=== PATIENT | male | born 1980 | race Caucasian/White ===

== ENCOUNTER 2018-05-03 14:35 | Inpatient (IN) ==
--- NOTE | 2018-05-03 15:21 | ED ---
HPI General Chief Complaint: Psychiatric Symptoms Stated Complaint: Psych Eval Time Seen by Provider: 05/03/18 15:04 Source: patient Mode of arrival: ambulatory Limitations: no limitations History of Present Illness HPI Narrative: Is a 38-year-old man, presents to the emergency department complaining of feeling unwell. He states that he has been having confusion, and difficulty maintaining his thoughts. He reports that he started meditating , started practicing astral projection, and states that he "took it too far". He reports that he is no longer able to focus in one dimension, and is having trouble other people salts from his. He endorses hallucinations. He states symptoms been ongoing for several weeks. He states he is drinking alcoholic occasionally, but not daily. He does report that he was using "kratom " but stopped about 2 weeks ago. From research, it appears that this is a plant chemical, unrestricted in the [place], used to treat opiate withdrawal symptoms , and also reported that both stimulant and sedative effects. Apparently is from [place], where it is illegal. Patient also reports some GI symptoms including nausea, and some abdominal pain. Related Data Home Medications Medication Instructions Recorded Confirmed atenolol 50 mg PO DAILY 05/03/18 05/03/18 Allergies Allergy/AdvReac Type Severity Reaction Status Date / Time Sulfa (Sulfonamide Allergy Unknown A CHILD Verified 10/30/17 14:58 Antibiotics) Review of Systems ROS: all other systems reviewed are negative [facility] Medical History Medical History ADHD (Acute) Anxiety (Acute) Hypertension (Acute) Pulmonary embolism (Acute) Social History Social History Substance History: Active Abuse Second Hand Smoke Exposure: Yes Smoking Status: Current some day smoker Tobacco Type: Cigarettes How Often Do You Have a Drink Containing Alcohol: 2 to 4 times a month Recent Travel in [place] within the Last 8 Weeks: No Recent Out of Country Travel within the Last 8 Weeks: No Immunization History Tetanus Immunization Year if Known: 2010 Exam Narrative Exam Narrative: GENERAL: 38-year-old man, anxious, nontoxic. SKIN: Focused skin assessment warm/dry. HEAD: Atraumatic. Normocephalic. EYES: Pupils equal and round. No scleral icterus. No injection or drainage. ENT: No nasal bleeding or discharge. Mucous membranes pink and moist. NECK: Trachea midline. No JVD. CARDIOVASCULAR: Regular rate and rhythm. No murmur appreciated. RESPIRATORY: No accessory muscle use. Clear to auscultation. Breath sounds equal bilaterally. GASTROINTESTINAL: Abdomen soft, non-tender, nondistended. Hepatic and splenic margins not palpable. MUSCULOSKELETAL: No obvious deformities. No clubbing. No cyanosis. No edema. NEUROLOGICAL: Awake and alert. No obvious cranial nerve deficits. Motor grossly within normal limits. Normal speech. PSYCHIATRIC: Appropriate mood and affect; insight and judgment fair. Endorsing hallucinations. Course Initial Documented Vital Signs Temperature 99.0 F 05/03/18 14:45 Pulse Rate 79 05/03/18 14:45 Respiratory Rate 16 05/03/18 14:45 Blood Pressure 211/121 H 05/03/18 14:45 Pulse Oximetry 99 05/03/18 14:45 Last Documented Vital Signs Temperature 99.0 F 05/03/18 14:45 Pulse Rate 72 05/03/18 15:59 Respiratory Rate 14 05/03/18 15:59 Blood Pressure 184/115 H 05/03/18 16:41 Pulse Oximetry 100 05/03/18 15:59 Medical Decision Making MDM Narrative Medical decision making narrative: 38-year-old man, having bizarre psychotic symptoms including hallucinations, hyperreligiosity, and delusional thoughts. Does not appear to be paranoid. Does not appear to be threatening. Possibly related to drug use. Psychiatric history seems to be limited to anxiety. He is very anxious now, will recommend Ativan. We will plan on basic labs, drug screen, psychiatric evaluation. Some of the symptoms are tied into his history of GI complaints. Is a benign exam, does not appear overtly dehydrated. We will also repeat blood pressure. Lab work reviewed, renal function is slightly decreased compared to baseline, he is tolerating oral hydration and this will be encouraged. He has blood pressure was initially elevated and is slowly trending down, he has been given clonidine. He is medically cleared for psychiatric disposition. Medical Screen Exam Complete: Yes Emergency Medical Condition: Yes Lab Data Result diagrams: 05/03/18 15:23 05/03/18 15:23 Lab Results 05/03/18 05/03/18 Range/Units 15:23 15:23 WBC 6.1 (4.0-11.0) th/mm3 RBC 4.49 L (4.50-5.90) mil/mm3 Hgb 15.1 (13.0-17.0) gm/dL Hct 42.4 (39.0-51.0) % MCV 94.4 (80.0-100.0) fL MCH 33.7 (27.0-34.0) pg MCHC 35.7 (32.0-36.0) % RDW 13.0 (11.6-17.2) % Plt Count 380 (150-450) th/mm3 MPV 6.7 L (7.0-11.0) fL Neut % (Auto) 60.2 (16.0-70.0) % Lymph % (Auto) 26.4 (9.0-44.0) % [place] % (Auto) 11.5 H (0.0-8.0) % Eos % (Auto) 1.0 (0.0-4.0) % Baso % (Auto) 0.9 (0.0-2.0) % Neut # (Auto) 3.7 (1.8-7.7) th/mm3 Lymph # (Auto) 1.6 (1.0-4.8) th/mm3 [place] # (Auto) 0.7 (0.0-0.9) th/mm3 Eos # (Auto) 0.1 (0.0-0.4) th/mm3 Baso # (Auto) 0.1 (0.0-0.2) th/mm3 WBC Differential . Differential Comment Auto diff final Sodium 141 (136-145) meq/L Potassium 4.3 (3.5-5.1) meq/L Chloride 107 (98-107) meq/L Carbon Dioxide 27.7 (21.0-32.0) meq/L Anion Gap 6 (5-15) meq/L BUN 27 H (7-18) mg/dL Creatinine 1.34 H (0.60-1.30) mg/dL Estimated GFR 60 L (>89) mL/min Random Glucose 107 H (74-106) mg/dL Calcium 9.0 (8.5-10.1) mg/dL Magnesium 1.8 (1.5-2.5) mg/dL Total Bilirubin 0.6 (0.2-1.0) mg/dL AST 32 (15-37) U/L ALT 49 (12-78) U/L Alkaline Phosphatase 106 (45-117) U/L Total Protein 8.2 (6.4-8.2) g/dL Albumin 4.1 (3.4-5.0) g/dL TSH 0.564 (0.358-3.740) uIU/mL Serum Alcohol Less than 3 (0-5) mg/dL Discharge Plan Discharge Disposition Patient Disposition: Sign Out(ED Internal Use Only) Discharge Condition Condition: Stable Discharge Details Diagnosis: Encounter for medical clearance for patient hold Physicians Team ED Provider: Elieser Hinton ED Midlevel Provider: Michael Steven Primary Care Provider: Sarath Plummer Rxs /Orders / Referrals /Forms Prescriptions: No Action atenolol 50 mg Tablet 50 mg PO DAILY RF: 0 Discharge Interventions Interventions: Vital Signs Last Done: 05/03/18 16:41 Status ED Status: Medically Cleared
[2018-05-03 15:34] LABS: Baso # (Auto) 0.1 th/mm3 (0.0-0.2); Baso % (Auto) 0.9 % (0.0-2.0); Eos # (Auto) 0.1 th/mm3 (0.0-0.4); Hematocrit 42.4 % (39.0-51.0); Hemoglobin 15.1 gm/dL (13.0-17.0); Lymph # (Auto) 1.6 th/mm3 (1.0-4.8); Lymph % (Auto) 26.4 % (9.0-44.0); Mean Corpuscular HGB Conc 35.7 % (32.0-36.0); Mean Corpuscular Hemoglobin 33.7 pg (27.0-34.0); Mean Corpuscular Volume 94.4 fL (80.0-100.0); Mean Platelet Volume 6.7 fL (7.0-11.0); Mono # (Auto) 0.7 th/mm3 (0.0-0.9); Mono % (Auto) 11.5 % (0.0-8.0); Neut # (Auto) 3.7 th/mm3 (1.8-7.7); Neut % (Auto) 60.2 % (16.0-70.0); Platelet Count 380 th/mm3 (150-450); Red Blood Count 4.49 mil/mm3 (4.50-5.90); White Blood Count 6.1 th/mm3 (4.0-11.0)
[2018-05-03 16:06] LABS: Alkaline Phosphatase 106 U/L (45-117); Thyroid Stimulating Hormone 0.564 uIU/mL (0.358-3.740); Total Protein 8.2 g/dL (6.4-8.2)
[2018-05-03 16:21] LABS: Alanine Aminotransferase 49 U/L (12-78); Albumin 4.1 g/dL (3.4-5.0); Anion Gap 6 meq/L (5-15); Aspartate Aminotransferase 32 U/L (15-37); Blood Urea Nitrogen 27 mg/dL (7-18); Carbon Dioxide 27.7 meq/L (21.0-32.0); Chloride 107 meq/L (98-107); Glomerular Filtration Rate 60 mL/min (>89); Glucose,Random 107 mg/dL (74-106); Magnesium 1.8 mg/dL (1.5-2.5); Sodium 141 meq/L (136-145)
[2018-05-03 16:31] LABS: Potassium 4.3 meq/L (3.5-5.1)
[2018-05-03 17:16] LABS: Amphetamine Screen,Urine Neg (Neg); Barbiturate Screen,Urine Neg (Neg); Cannabinoid Screen,Urine Pos (Neg); Cocaine Screen,Urine Neg (Neg)
[2018-05-03 17:17] LABS: Opiate Screen,Urine Neg (Neg)
[2018-05-04] MEDS ORDERED: Aluminum/Magnesium/Simethacone Susp 30 ML UDC PO PRN (10:15)
[2018-05-04] MEDS ORDERED: Atenolol 50 MG Tablet PO ONE (10:28)
--- NOTE | 2018-05-04 10:42 | P.HPPSY ---
Provisional Diagnosis Admission Date: May 03, 2018 14:35 [place].: Psychosis not otherwise specified Competence Certification of Person's Competence To Provide Express and Informed Consent I have personally examined Shaun Leal, a person being served at [facility] on, May 04, 2018 1022. Express and informed consent means consent voluntarily given in writing, by a competent person, after sufficient explanation and disclosure of the subject matter involved to enable the person to make a knowing and willful decision without any element of force, fraud, deceit, duress, or other form of constraint or coercion. This person is 18 years of age or older, is not now known to be incompetent to consent to treatment with a guardian advocate, and does not have a health care surrogate or proxy currently making medical treatment decisions. I have found this person to be one of the following: [XX] Competent to provide express and informed consent, as defined above, for voluntary admission to this facility and is competent to provide express and informed consent for treatment. He/she has the consistent capacity to make well reasoned, willful, and knowing decisions concerning his or her medical or mental health treatment. The person fully and consistently understands the purpose of the admission for examination/placement and is fully capable of personally exercising all rights assured [place] Incompetent to provide express and informed consent to voluntary admission, and this is incompetent to provide express and informed consent to treatment. The person must be transferred to involuntary status and a petition for a guardian advocate filed with the Circuit Court. [] Refusing to provide express and informed consent to voluntary admission but is competent to provide express and informed consent for treatment. The person must be discharged or transferred to involuntary status. Form shall be completed within 24 hours of a person's arrival at the receiving facility and filed in the clinical record of each person: 1. Admitted on a voluntary basis 2. Permitted to provide express and informed consent to his/her own treatment 3. Allowed to transfer from involuntary to voluntary status 4. Prior to permitting a person to consent to his or her own treatment after having been previously found incompetent to consent to treatment. History of Present Illness Capacity: Has capacity Chief Complaint: "I have been experiencing crippling anxiety, all over body pain , seeing things, and hearing voices in my head." History of Present Illness: This is a 38-year-old single, male who presents to this facility voluntarily reporting bizarre beliefs as well as visual and auditory hallucinations. He is previously known to this facility although not this department. Reviewed electronic medical record, labs, and discussed case with staff. Patient's toxicology is noted to be positive for cannabinoids. Patient was found in J103 sleeping under no apparent distress. He awakens to verbal stimulation. His speech is clear, logical, organized, rapid and pressured. He endorses suicidal ideation in a vague manner stating "I think about it all the time" but denies any previous attempts. But then goes on a tangent about "what comes next". He then states, "I know it is after this I seen it". He denies homicidal ideation. He endorses auditory hallucinations stating that the voices in his head keep telling "me to get better". He reports that he is experiencing visual hallucinations and when asked to elaborate he states, "I see energy all around me that forms itself and shapes I can talk to". The patient also states that he has been meditating and performing astral projection and due to this he is no longer able to "focus on one dimension". Throughout the conversation he goes off on multiple tangents along this line. He is easily distractible but overall is cooperative. Patient states that he lives with his mother. He is currently unemployed for the past 6 months. 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 He denies any previous inpatient admissions. He states that he did go to a psychiatrist once and was diagnosed with ADHD however he did not take the medication for long as he felt it was counterproductive. There was approximately 2 months ago. He reports that he is completed 3 years of college. He denies any firearms in the home. He denies any familial psychiatric diagnoses. He states that he was arrested once and spent time in [facility] for reckless driving/DUI. He does report chronic pain to his left leg and right hand due to surgeries but states he now has chronic pain "all over". He reports that he smokes a couple cigarettes a day, drinks occasionally, and denies any other drug use then marijuana approximately every other day. He does state his have difficulty sleeping of late reporting that he is gone as long as 3 days without sleeping. He then stated he will sleep for approximately an hour and be up again. He reports that his appetite has been greatly decreased and states that he has had intermittent cyclic vomiting. He denies any connection to the marijuana. Review of Systems All other systems reviewed negative except as stated in HPI PMFSH - History History Provided By: Patient - Medical History Medical History: Medical History (Last Reviewed 05/04/18 @ 10:33 by ELÍAS Chung) ADHD Anxiety Hypertension Pulmonary embolism - Tobacco History Second Hand Smoke Exposure: Yes Tobacco Use In Past 30 Days: Yes Smoking Status: Current some day smoker Tobacco Type: Cigarettes - Alcohol History How Often Do You Have a Drink Containing Alcohol: 2 to 4 times a month - Substance Use History Substance History: Active Abuse - Substance Use Type Marijuana Status: Active Other Status: Active - Travel History Recent Travel in the [place] Within the Last 8 Weeks: No Recent Travel Out of the Country Within the Last 8 Weeks: No - Immunization History Tetanus Immunization: Unsure Tetanus Immunization Year if Known: 2010 Quality Measures - Psychiatric History Psychological trauma history: Denies Violence risk to others in the last 6 months: Denies Violence risk to self in the last 6 months: Denies - Substance Abuse History Drug or alcohol use in the past 12 months: Marijuana and Kratom - Patient Strengths Patient's strengths (minimum of 2): Patient seems to have a good support system in his mother and he does seem to have some self awareness that his beliefs may not be real. Medications and Allergies Allergies Allergy/AdvReac Type Severity Reaction Status Date / Time Sulfa (Sulfonamide Allergy Unknown A CHILD Verified 05/03/18 17:28 Antibiotics) Home Medications Medication Instructions Recorded Confirmed Type atenolol 50 mg PO DAILY 05/03/18 05/03/18 History Results - Labs CBC & Chem 7: 05/03/18 15:23 05/03/18 15:23 Labs: Laboratory Results - last 24 hr 05/03/18 05/03/18 05/03/18 15:23 15:23 16:10 WBC 6.1 RBC 4.49 L Hgb 15.1 Hct 42.4 MCV 94.4 MCH 33.7 MCHC 35.7 RDW 13.0 Plt Count 380 MPV 6.7 L Neut % (Auto) 60.2 Lymph % (Auto) 26.4 [place] % (Auto) 11.5 H Eos % (Auto) 1.0 Baso % (Auto) 0.9 Neut # (Auto) 3.7 Lymph # (Auto) 1.6 [place] # (Auto) 0.7 Eos # (Auto) 0.1 Baso # (Auto) 0.1 WBC Differential . Differential Comment Auto diff final Sodium 141 Potassium 4.3 Chloride 107 Carbon Dioxide 27.7 Anion Gap 6 BUN 27 H Creatinine 1.34 H Estimated GFR 60 L Random Glucose 107 H Calcium 9.0 Magnesium 1.8 Total Bilirubin 0.6 AST 32 ALT 49 Alkaline Phosphatase 106 Total Protein 8.2 Albumin 4.1 TSH 0.564 Urine Opiates Screen Neg Ur Barbiturates Screen Neg Ur Amphetamines Screen Neg U Benzodiazepines Scrn Neg Urine Cocaine Screen Neg U Cannabinoids Screen Pos H Serum Alcohol Less than 3 Exam Vital signs: Vital Signs 05/03/18 14:45 05/03/18 15:59 05/03/18 16:00 Temperature 99.0 F Pulse Rate 79 72 Respiratory Rate 16 14 Blood Pressure 211/121 H 190/107 H 191/120 H Pulse Oximetry 99 100 05/03/18 16:41 05/03/18 18:48 05/03/18 22:11 Temperature 97.5 F L Pulse Rate 84 82 Respiratory Rate 16 16 Blood Pressure 184/115 H 178/112 H Pulse Oximetry 100 100 05/04/18 05:34 Temperature 97.6 F Pulse Rate 78 Respiratory Rate 20 Blood Pressure 149/103 H Pulse Oximetry 100 Intake & Output 05/03/18 05/04/18 05/04/18 18:59 06:59 18:59 Weight 175 lb - Constitutional no acute distress, average body habitus - Routine HEENT Exam Head: Present: normocephalic, atraumatic - Routine Neurological Exam Present: alert, oriented X3 - Routine Psychiatric Exam Present: auditory hallucinations, visual hallucinations, cooperative, anxious Mental Status Examination Appearance: Appropriate, Well dressed/well groomed Consciousness: Alert Orientation: x4 Motor Activity: Normal gait Speech: Pressured, Rapid Language: Perseveration (On astral planes and other dimensions) Fund of Knowledge: Adequate Attention and Concentration: Easily distracted Memory: Unremarkable Mood: Anxious Affect: Anxious Thought Process & Associations: Tangential Thought Content: Bizarre thinking, Hallucinations, Preoccupations Hallucination Type: Auditory, Visual Delusion Type: Bizarre Suicidal Ideation: Yes (States that he thinks about it all the time) Suicidal Plan: No Suicidal Intention: No Homicidal Ideation: No Homicidal Plan: No Homicidal Intention: No Insight: Poor Judgment: Impulsive Assessment and Plan - Assessment (1) Unspecified psychosis Code(s): F29 - Unspecified psychosis not due to a substance or known physiological condition Status: Acute - Plan Plan: Estimated LOS: [7] days given that the patient endorses suicidal ideation as well as auditory and visual hallucinations which are affecting his quality of life he meets inpatient admission criteria. Therefore, I am admitting him to a locked inpatient psychiatric unit for further evaluation and treatment deemed necessary. He is exhibiting psychotic symptoms however there is some evidence of maciel as well. At this time we obtained his consent to initiate 50 mg of Seroquel at bedtime to target his psychosis however, he may require a mood stabilizer at some point. Additionally, he has signed for 50 mg of hydroxyzine by mouth every 6 hours as needed for anxiety and 50 mg of diphenhydramine by mouth at bedtime as needed for insomnia. Justification for Continued Inpatient Stay: Moving this patient to a less restrictive environment would likely result in decompensation. Request Healthcare Surrogate/Guardian Advocate?: No
[2018-05-04] MEDS: Ibuprofen 600 MG Tablet PO PRN (21:13)
[2018-05-04] MEDS: QUEtiapine 25 MG Tablet PO SCH (21:14)
[2018-05-05] MEDS: Ibuprofen 600 MG Tablet PO PRN ×2 (05:33→11:35)
[2018-05-05 09:47] LABS: Calcium 8.5 mg/dL (8.5-10.1); Carbon Dioxide 28.2 meq/L (21.0-32.0); Potassium 4.1 meq/L (3.5-5.1)
[2018-05-05 09:51] LABS: Chol/HDL Ratio 3.44 Ratio; HDL Cholesterol 55.5 mg/dL (40.0-60.0)
[2018-05-05 11:06] LABS: Hemoglobin A1c 5.1 % (4.3-6.0)
--- NOTE | 2018-05-05 12:41 | P.HPFP ---
Addendum entered and electronically signed by Alexa Crews MD, R1 16:13: D/C clonidine for breakthrough HTN due to patient being on BB and concern for adverse reaction with unopposed alpha. Patient still hypertensive despite 50 mg atenolol. Will increase dose to 100 mg daily. Consider adding HCTZ if blood pressures remain elevated. Concern with kidney function since patient is on ketorolac for pain control so will hold off GULSHAN inhibitors at this time. Original Note: History of Present Illness Primary Care Physician: Sarath Plummer MD <Dontae Wise - 05/06/18 19:08> Sarath Plummer MD <Alexa Barrera - 05/05/18 12:41> History of Present Illness: CONSULT NOTE 38-year-old male with past medical history of migraines, and hypertension on atenolol 50 mg daily admitted to the psychiatric unit for hallucinations/ depression/anxiety. Medicine team consulted to manage patient's hypertension and chronic pain. Patient states that he is currently anxious and has been anxious since admission, he continues to worry about his high blood pressures. He also complains of migraines that occur once a month. Affirms photophobia, migraine located in the frontal region of his head. He has tried ibuprofen with minimal relief. He also confirms some nausea but denies any vomiting. Also confirms diarrhea, last bowel movement was 3 days ago. He confirms visual hallucinations for the past 6 months with associated nausea, vomiting and weakness. He confirms low energy, not getting out of bed. He denies being actively suicidal but states he is curious about suicide and thinks about the process often. He denies any homicidal intent. Past medical history: Hypertension Past surgical history: Left knee surgery. Allergies: Sulfa drugs (unsure of reaction). Medications: Atenolol 50 mg daily Family history: Unsure of family past medical history. Social history: Smokes 2 cigarettes a day, occasional alcohol use, consumes alcohol socially. Addicted to opioids in the past and has withdrawn from them previously. Confirms marijuana use and kratom use. Confirms using shrooms few months ago. Lives at home with mother. Review of systems: Panpositive. He complains of night sweats, chest pain, shortness of breath, abdominal pain, anxiety. <Alexa Barrera 05/05/18 15:42> - Diagnosis (1) Hypertension (2) Migraines (3) Chronic pain (4) Anxiety (5) Nutrition, metabolism, and development symptoms <FrandyDontae 05/06/18 19:08> (1) Hypertension (2) Migraines (3) Chronic pain (4) Anxiety (5) Nutrition, metabolism, and development symptoms <Daniellekoko EleonoraAlexa 05/05/18 15:43> Inpatient Certification: I certify that the inpatient services were ordered in accordance with Medicare regulations governing the order. This includes certification that hospital inpatient services are reasonable and necessary and in the case of services not specified as inpatient-only under 42 CFR 419.22(n), that they are appropriately provided as inpatient services in accordance to with the 2-midnight benchmark under 43 CFR 412.3(e) <FrandyDontae Teetee 05/06/18 19:08> I certify that the inpatient services were ordered in accordance with Medicare regulations governing the order. This includes certification that hospital inpatient services are reasonable and necessary and in the case of services not specified as inpatient-only under 42 CFR 419.22(n), that they are appropriately provided as inpatient services in accordance to with the 2-midnight benchmark under 43 CFR 412.3(e) <Maria Isabelgrant EleonoraAlexa 05/05/18 12:41> Estimated Total Length of Stay (Days): 7 <Maria Isabelgrant EleonoraAlexa 05/05/18 12:41> Plans for Post Hospital Care: Home <Maria Isabelgrant CrewsAlexa 05/05/18 12:41> PMFSH - History History Provided By: Patient <Maria Isabelgrant CrewsAlexa 05/05/18 12:41> - Medical History Medical History: Medical History (Last Reviewed 05/04/18 @ 10:33 by ELÍAS Chung) ADHD Anxiety Hypertension Pulmonary embolism <FrandyDontae Teetee Franklin 05/06/18 19:08> Medical History (Last Reviewed 05/04/18 @ 10:33 by ELÍAS Chung) ADHD Anxiety Hypertension Pulmonary embolism <Mariusz CrewsAlexa 05/05/18 12:41> - Tobacco History Second Hand Smoke Exposure: Yes <Alexa Barrera 05/05/18 12:41> Tobacco Use In Past 30 Days: Yes <Alexa Barrera 05/05/18 12:41> Smoking Status: Current every day smoker <Alexa Barrera 05/05/18 12:41> Tobacco Type: Cigarettes <Alexa Barrera 05/05/18 12:41> - Alcohol History How Often Do You Have a Drink Containing Alcohol: 2 to 4 times a month <Alexa Barrera 05/05/18 12:41> - Substance Use History Substance History: Past History <Alexa Barrera 05/05/18 12:41> - Substance Use Type Marijuana Status: Active <Alexa Barrera 05/05/18 12:41> Route Used: Inhalation <Alexa Barrera 05/05/18 12:41> Reason for Use: Calm Down <Mariusz CrewsAlexa 05/05/18 12:41> Other Status: Active <Alexa Barrera 05/05/18 12:41> Route Used: By Mouth <Alexa Barrera 05/05/18 12:41> Reason for Use: Calm Down <Alexa Barrera 05/05/18 12:41> - Travel History Recent Travel in the [place] Within the Last 8 Weeks: No <Alexa Barrera 04/11 12:41> Recent Travel Out of the Country Within the Last 8 Weeks: No <Mariusz Crews Alexa 05/05/18 12:41> - Immunization History Tetanus Immunization: <5 Years <Mariusz CrewsAlexa 05/05/18 12:41> Tetanus Immunization Year if Known: 2010 <Alexa Barrera 05/05/18 12:41> Hx Influenza Vaccine This Season: No <Mariusz CrewsAlexa 05/05/18 12:41> Medications and Allergies Allergies Allergy/AdvReac Type Severity Reaction Status Date / Time Sulfa (Sulfonamide Allergy Unknown A CHILD Verified 05/03/18 17:28 Antibiotics) <Dontae Wise - 05/06/18 19:08> Home Medications Medication Instructions Recorded Confirmed Type atenolol 50 mg PO DAILY 05/03/18 05/03/18 History <Dontae Wise L - 05/06/18 19:08> Active Medications: Active Medications Al Hydrox/Mg Hydrox/Simethicone (Mag-Al Plus Susp Liq) 30 ml PO Q6H PRN PRN Reason: DYSPEPSIA Al Hydroxide/Mg Hydroxide (Milk Of Magnesia Liq) 30 ml PO Q12H PRN PRN Reason: Mild Constipation Atenolol (Tenormin) 50 mg PO DAILY [facility] Last Admin: 05/06/18 12:35 Dose: 50 mg Buspirone HCl (Buspar) 10 mg PO TID [facility] Last Admin: 05/06/18 17:20 Dose: 10 mg Diphenhydramine HCl (Benadryl) 50 mg PO HS PRN PRN Reason: INSOMNIA Last Admin: 05/06/18 12:37 Dose: 50 mg Gabapentin (Neurontin) 300 mg PO TID [facility] Last Admin: 05/06/18 17:12 Dose: 300 mg Hydrochlorothiazide (Hydrodiuril) 25 mg PO DAILY [facility] Last Admin: 05/06/18 11:00 Dose: 25 mg Hydroxyzine HCl (Atarax) 50 mg PO Q6H PRN PRN Reason: ANXIETY Last Admin: 05/06/18 12:35 Dose: 50 mg Ibuprofen (Motrin) 400 mg PO Q6H PRN PRN Reason: PAIN SCALE 1 TO 2 Naloxone HCl (Narcan Inj) 0.4 mg IV.PUSH UNSCH PRN PRN Reason: SEE LABEL COMMENTS Nicotine (Habitrol 21 Mg Patch.24 Hr) 1 patch T-DERMAL DAILY [facility] Last Admin: 05/06/18 09:13 Dose: 1 patch Patch Removal (Remove Old Patch) 1 each T-DERMAL HS [facility] Last Admin: 05/05/18 21:57 Dose: Not Given Quetiapine Fumarate (Seroquel) 50 mg PO HS [facility] Last Admin: 05/05/18 21:41 Dose: 50 mg Sumatriptan Succinate (Imitrex Inj) 6 mg SQ ONCE PRN PRN Reason: MIGRAINE HEADACHE Last Admin: 05/06/18 18:47 Dose: 6 mg Tramadol HCl (Ultram) 50 mg PO Q6H PRN PRN Reason: PAIN SCALE 3 TO 5 Tramadol HCl (Ultram) 100 mg PO Q6H PRN PRN Reason: PAIN SCALE 6 TO 10 Last Admin: 05/06/18 17:14 Dose: 100 mg Trazodone HCl (Desyrel) 50 mg PO HS PRN PRN Reason: SLEEP <Dontae Wise - 05/06/18 19:08> Active Medications Al Hydrox/Mg Hydrox/Simethicone (Mag-Al Plus Susp Liq) 30 ml PO Q6H PRN PRN Reason: DYSPEPSIA Al Hydroxide/Mg Hydroxide (Milk Of Magnesia Liq) 30 ml PO Q12H PRN PRN Reason: Mild Constipation Diphenhydramine HCl (Benadryl) 50 mg PO HS PRN PRN Reason: INSOMNIA Last Admin: 05/04/18 21:14 Dose: 50 mg Hydroxyzine HCl (Atarax) 50 mg PO Q6H PRN PRN Reason: ANXIETY Last Admin: 05/05/18 05:33 Dose: 50 mg Ibuprofen (Motrin) 600 mg PO Q6H PRN PRN Reason: PAIN SCALE 1 TO 10 Last Admin: 05/05/18 05:33 Dose: 600 mg Nicotine (Habitrol 21 Mg Patch.24 Hr) 1 patch T-DERMAL DAILY [facility] Last Admin: 05/05/18 09:48 Dose: 1 patch Patch Removal (Remove Old Patch) 1 each T-DERMAL HS [facility] Last Admin: 05/04/18 21:14 Dose: Not Given Quetiapine Fumarate (Seroquel) 50 mg PO HS [facility] Last Admin: 05/04/18 21:14 Dose: 50 mg <Alexa Barrera - 05/05/18 12:41> Exam Vital signs: Vital Signs 05/05/18 22:29 05/05/18 23:06 05/06/18 00:08 Temperature Pulse Rate 80 62 Respiratory Rate 16 Blood Pressure 167/115 H 131/81 Pulse Oximetry 05/06/18 05:57 05/06/18 17:39 Temperature 97.8 F 98.7 F Pulse Rate 69 72 Respiratory Rate 18 18 Blood Pressure 126/85 165/99 H Pulse Oximetry 100 99 <Dontae Wise - 05/06/18 19:08> Vital Signs 05/04/18 14:13 05/04/18 17:00 05/05/18 06:05 Temperature 98.7 F 97.4 F L Pulse Rate 76 83 66 Respiratory Rate 20 18 Blood Pressure 144/91 H 135/78 157/104 H Pulse Oximetry 100 98 Intake & Output 05/04/18 05/05/18 05/05/18 18:59 06:59 18:59 Weight 79.8 kg Other: Weight On Admission 79.8 kg <Maria Isabelgrant Alexa Crews - 05/05/18 12:41> Narrative: GENERAL: Middle age appearing male, sitting in bed, in no acute distress. SKIN: Warm and dry. HEAD: Normocephalic. EYES: No scleral icterus. No injection or drainage. NECK: Supple, trachea midline. No JVD or lymphadenopathy. CARDIOVASCULAR: Regular rate and rhythm without murmurs, gallops, or rubs. RESPIRATORY: Breath sounds equal bilaterally. No accessory muscle use. GASTROINTESTINAL: Abdomen soft, non-tender, nondistended. MUSCULOSKELETAL: No cyanosis, or edema. BACK: Nontender without obvious deformity. No CVA tenderness. <Mariusz CrewsAlexa - 05/05/18 15:42> Results - Labs Result diagrams: 05/03/18 15:23 05/05/18 08:26 <Dontae Wise - 05/06/18 19:08> Abnormal lab results 05/05/18 Range/Units 08:26 BUN 20 H (7-18) mg/dL Estimated GFR 77 L (>89) mL/min Triglycerides 274 H (42-150) mg/dL BMP 05/05/18 08:26 Sodium 139 Potassium 4.1 Chloride 103 Carbon Dioxide 28.2 BUN 20 H Creatinine 1.08 Calcium 8.5 <Mariusz CrewsAlexa - 05/05/18 12:41> Caprini VTE Risk Assessment Caprini VTE Risk Assessment: No/Low Risk (score <= 1) <Mariusz CrewsAlexa - 04/11 15:44> Caprini Risk Assessment Model: Point Value = 1 Point Value = 2 Point Value = 3 Point Value = 5 Age 41-60 Minor surgery BMI > 25 kg/m2 Swollen legs Varicose veins or History of unexplained or recurrent spontaneous Oral contraceptives or hormone replacement Sepsis (< 1 month) Serious lung disease, including pneumonia (< 1 month) Abnormal pulmonary function Acute myocardial infarction Congestive heart failure (< 1 month) History of inflammatory bowel disease Medical patient at bed rest Age 61-74 Arthroscopic surgery Major open surgery (> 45 min) Laparoscopic surgery (> 45 min) Malignancy Confined to bed (> 72 hours) Immobilizing plaster cast Central venous access Age >= 75 History of VTE Family history of VTE Factor V Leiden Prothrombin [id number] Lupus anticoagulant Anticardiolipin antibodies Elevated serum homocysteine Heparin-induced thrombocytopenia Other congenital or acquired thrombophilia Stroke (< 1 month) Elective arthroplasty Hip, pelvis, or leg fracture Acute spinal cord injury (< 1 month) <Dontae Wise - 05/06/18 19:08> Point Value = 1 Point Value = 2 Point Value = 3 Point Value = 5 Age 41-60 Minor surgery BMI > 25 kg/m2 Swollen legs Varicose veins or History of unexplained or recurrent spontaneous Oral contraceptives or hormone replacement Sepsis (< 1 month) Serious lung disease, including pneumonia (< 1 month) Abnormal pulmonary function Acute myocardial infarction Congestive heart failure (< 1 month) History of inflammatory bowel disease Medical patient at bed rest Age 61-74 Arthroscopic surgery Major open surgery (> 45 min) Laparoscopic surgery (> 45 min) Malignancy Confined to bed (> 72 hours) Immobilizing plaster cast Central venous access Age >= 75 History of VTE Family history of VTE Factor V Leiden Prothrombin [id number] Lupus anticoagulant Anticardiolipin antibodies Elevated serum homocysteine Heparin-induced thrombocytopenia Other congenital or acquired thrombophilia Stroke (< 1 month) Elective arthroplasty Hip, pelvis, or leg fracture Acute spinal cord injury (< 1 month) <Alexa Barrera - 05/05/18 12:41> Prophylaxis Regimen: Total Risk Factor Score Risk Level Prophylaxis Regimen 0-1 Low Early ambulation 2 Moderate Order ONE of the following: *Sequential Compression Device (SCD) *Heparin 5000 units SQ BID 3-4 Higher Order ONE of the following medications: *Heparin 5000 units SQ TID *Enoxaparin/Lovenox 40 mg SQ daily (WT < 150 kg, CrCl > 30 mL/min) *Enoxaparin/Lovenox 30 mg SQ daily (WT < 150 kg, CrCl > 10-29 mL/min) *Enoxaparin/Lovenox 30 mg SQ BID (WT < 150 kg, CrCl > 30 mL/min) AND/OR *Sequential Compression Device (SCD) 5 or more Highest Order ONE of the following medications: *Heparin 5000 units SQ TID (Preferred with Epidurals) *Enoxaparin/Lovenox 40 mg SQ daily (WT < 150 kg, CrCl > 30 mL/min) *Enoxaparin/Lovenox 30 mg SQ daily (WT < 150 kg, CrCl > 10-29 mL/min) *Enoxaparin/Lovenox 30 mg SQ BID (WT < 150 kg, CrCl > 30 mL/min) AND *Sequential Compression Device (SCD) <Dontae Wise - 05/06/18 19:08> Total Risk Factor Score Risk Level Prophylaxis Regimen 0-1 Low Early ambulation 2 Moderate Order ONE of the following: *Sequential Compression Device (SCD) *Heparin 5000 units SQ BID 3-4 Higher Order ONE of the following medications: *Heparin 5000 units SQ TID *Enoxaparin/Lovenox 40 mg SQ daily (WT < 150 kg, CrCl > 30 mL/min) *Enoxaparin/Lovenox 30 mg SQ daily (WT < 150 kg, CrCl > 10-29 mL/min) *Enoxaparin/Lovenox 30 mg SQ BID (WT < 150 kg, CrCl > 30 mL/min) AND/OR *Sequential Compression Device (SCD) 5 or more Highest Order ONE of the following medications: *Heparin 5000 units SQ TID (Preferred with Epidurals) *Enoxaparin/Lovenox 40 mg SQ daily (WT < 150 kg, CrCl > 30 mL/min) *Enoxaparin/Lovenox 30 mg SQ daily (WT < 150 kg, CrCl > 10-29 mL/min) *Enoxaparin/Lovenox 30 mg SQ BID (WT < 150 kg, CrCl > 30 mL/min) AND *Sequential Compression Device (SCD) <Alexa Barrera - 05/05/18 12:41> Assessment and Plan - Assessment (1) Hypertension Code(s): I10 - Essential (primary) hypertension Status: Acute (2) Migraines Code(s): G43.909 - Migraine, unspecified, not intractable, without status migrainosus Status: Acute (3) Chronic pain Code(s): G89.29 - Other chronic pain Status: Acute (4) Anxiety Code(s): F41.9 - Anxiety disorder, unspecified Status: Acute (5) Nutrition, metabolism, and development symptoms Code(s): R63.8 - Other symptoms and signs concerning food and fluid intake Status: Acute <Dontae iWse - 05/06/18 19:08> (1) Hypertension Code(s): I10 - Essential (primary) hypertension Status: Acute Plan: Patient currently on atenolol 50 mg daily. Will continue home medication. Continue to monitor vital signs every 4. Spoke to poison control about kratom use: Chronic kratom use can cause hypertension, constipation and cardiac abnormalities. Patient's on chronic kratom can also go through extensive withdrawal symptoms which include myalgia, insomnia, chest discomfort. Treatment of cranium withdrawal include symptomatic and supportive care. EKG: Normal sinus rhythm with left ventricular hypertrophy per resident read.\ Clonidine 0.1 mg for breakthrough to assist with withdrawal symptoms and hypertension. (2) Migraines Code(s): G43.909 - Migraine, unspecified, not intractable, without status migrainosus Status: Acute Plan: Ketotolac 10 mg q6. (3) Chronic pain Code(s): G89.29 - Other chronic pain Status: Acute Plan: Ketorolac 10 mg q 6 (4) Anxiety Code(s): F41.9 - Anxiety disorder, unspecified Status: Acute Plan: Continue Seroquel, gabapentin and Atarax (5) Nutrition, metabolism, and development symptoms Code(s): R63.8 - Other symptoms and signs concerning food and fluid intake Status: Acute Plan: Fluids: Encourage p.o. intake Electrolytes: Monitor and replete as needed. Nutrition: Regular diet. <Alexa Barrera - 05/05/18 15:43> - Assessment and Plan Discussed Condition With: Dr. Lockhart and Dr. Wise <Alexa Barrera - 05/05/18 15:37> - Attending Attestation The exam, history, and the medical decision-making described in the above note were completed with the assistance of the resident physician. I reviewed and agree with the findings presented. I attest that I had a [id number] encounter with the patient on the same day, and personally performed and documented my assessment and findings in the medical record. Patient currently in psych unit for suicidal ideation, auditory and visual hallucinations. Medicine consulted for management of hypertension, chronic pain, headaches. Agree with plan above. Upon interview with patient, he sees Dr. Plummer. This case was discussed by the residents with Dr. Plummer. He will be transferred to our FPTS team for further management. <Dontae Wise - 05/06/18 19:08> H&P: Quality - VTE Deep Vein Thrombosis/Pulmonary Embolism Present on Admission: No <Alexa Barrera - 05/05/18 12:41>
[2018-05-05] MEDS ORDERED: Atenolol 50 MG Tablet PO SCH (13:15)
--- NOTE | 2018-05-05 13:35 | P.PNPSY ---
Subjective Chief Complaint: "I have been experiencing crippling anxiety, all over body pain , seeing things, and hearing voices in my head." Remarks: Patient was seen and case discussed with nursing. Patient is complaining of a persistent anxiety. We discussed medication options and he gives consent for gabapentin. He is here because of a "existential crisis." He is thinking a lot about the afterlife denies any suicidal or homicidal ideation intent or plan. Review of Systems All other systems reviewed negative except as stated in HPI Mental Status Examination Appearance: Appropriate, Well dressed/well groomed Consciousness: Alert Orientation: x4 Motor Activity: Normal gait Speech: Unremarkable Language: Perseveration (On astral planes and other dimensions) Fund of Knowledge: Adequate Attention and Concentration: Easily distracted Memory: Unremarkable Mood: Anxious Affect: Anxious Thought Process & Associations: Tangential Thought Content: Bizarre thinking, Hallucinations, Preoccupations Hallucination Type: Auditory, Visual Delusion Type: Bizarre Suicidal Ideation: Yes (States that he thinks about it all the time) Suicidal Plan: No Suicidal Intention: No Homicidal Ideation: No Homicidal Plan: No Homicidal Intention: No Insight: Poor Judgment: Impulsive Assessment and Plan - Plan Plan: Start gabapentin 300 mg p.o. 3 times daily Justification for Continued Inpatient Stay: Patient would decompensate in a less restrictive setting Request Healthcare Surrogate/Guardian Advocate?: No
[2018-05-05] MEDS ORDERED: hydrALAZINE HCl Inj 20 MG/ML Vial IV.PUSH PRN (16:12)
[2018-05-05] MEDS ORDERED: Atenolol 50 MG Tablet PO ONE (16:18)
[2018-05-05] MEDS: Gabapentin 300 MG Capsule PO SCH (17:59)
[2018-05-05] MEDS: QUEtiapine 25 MG Tablet PO SCH (21:41)
[2018-05-05] MEDS: Ketorolac 10 MG Tablet PO PRN (22:19)
[2018-05-05] MEDS ORDERED: hydroCHLOROthiazide 25 MG Tablet PO ONE (22:35)
[2018-05-06] MEDS: Ketorolac 10 MG Tablet PO PRN (06:50)
--- NOTE | 2018-05-06 08:20 | P.HPFP ---
History of Present Illness Primary Care Physician: Sarath Plummer MD History of Present Illness: CONSULT NOTE 38-year-old male with past medical history of migraines, and hypertension on atenolol 50 mg daily admitted to the psychiatric unit for hallucinations/ depression/anxiety. Medicine team consulted to manage patient's hypertension and chronic pain. Patient states that he is currently anxious and has been anxious since admission, he continues to worry about his high blood pressures. He also complains of migraines that occur once a month. Affirms photophobia, migraine located in the frontal region of his head. He has tried ibuprofen with minimal relief. He also confirms some nausea but denies any vomiting. Also confirms diarrhea, last bowel movement was 3 days ago. He confirms visual hallucinations for the past 6 months with associated nausea, vomiting and weakness. He confirms low energy, not getting out of bed. He denies being actively suicidal but states he is curious about suicide and thinks about the process often. He denies any homicidal intent. Past medical history: Hypertension Past surgical history: Left knee surgery. Allergies: Sulfa drugs (unsure of reaction). Medications: Atenolol 50 mg daily Family history: Unsure of family past medical history. Social history: Smokes 2 cigarettes a day, occasional alcohol use, consumes alcohol socially. Addicted to opioids in the past and has withdrawn from them previously. Confirms marijuana use and kratom use. Confirms using shrooms few months ago. Lives at home with mother. Review of systems: Panpositive. He complains of night sweats, chest pain, shortness of breath, abdominal pain, anxiety. - Diagnosis (1) Hypertension (2) Migraines (3) Chronic pain (4) Anxiety (5) Nutrition, metabolism, and development symptoms Inpatient Certification: I certify that the inpatient services were ordered in accordance with Medicare regulations governing the order. This includes certification that hospital inpatient services are reasonable and necessary and in the case of services not specified as inpatient-only under 42 CFR 419.22(n), that they are appropriately provided as inpatient services in accordance to with the 2-midnight benchmark under 43 CFR 412.3(e) Estimated Total Length of Stay (Days): 7 Plans for Post Hospital Care: Home [facility] - History History Provided By: Patient - Medical History Medical History: Medical History (Last Reviewed 05/04/18 @ 10:33 by ELÍAS Chung) ADHD Anxiety Hypertension Pulmonary embolism - Tobacco History Second Hand Smoke Exposure: Yes Tobacco Use In Past 30 Days: Yes Smoking Status: Current every day smoker Tobacco Type: Cigarettes - Alcohol History How Often Do You Have a Drink Containing Alcohol: 2 to 4 times a month - Substance Use History Substance History: Past History - Substance Use Type Marijuana Status: Active Route Used: Inhalation Last Used: 1 week ago Reason for Use: Calm Down Comment: Pain managment Other Status: Active Route Used: By Mouth Reason for Use: Calm Down Comment: Patient had used ETOH few days ago, drinks occasionally. Luda has history of opiod dependence. Patient reported he had used mushrooms a few months ago. - Travel History Recent Travel in the [place] Within the Last 8 Weeks: No Recent Travel Out of the Country Within the Last 8 Weeks: No - Immunization History Tetanus Immunization: <5 Years Tetanus Immunization Year if Known: 2010 Hx Influenza Vaccine This Season: No Medications and Allergies Active Medications: Active Medications Al Hydrox/Mg Hydrox/Simethicone (Mag-Al Plus Susp Liq) 30 ml PO Q6H PRN PRN Reason: DYSPEPSIA Al Hydroxide/Mg Hydroxide (Milk Of Magnesia Liq) 30 ml PO Q12H PRN PRN Reason: Mild Constipation Atenolol (Tenormin) 100 mg PO DAILY [facility] Diphenhydramine HCl (Benadryl) 50 mg PO HS PRN PRN Reason: INSOMNIA Last Admin: 05/05/18 21:42 Dose: 50 mg Gabapentin (Neurontin) 300 mg PO TID [facility] Last Admin: 05/05/18 17:59 Dose: 300 mg Hydroxyzine HCl (Atarax) 50 mg PO Q6H PRN PRN Reason: ANXIETY Last Admin: 05/06/18 06:48 Dose: 50 mg Ketorolac Tromethamine (Toradol) 10 mg PO Q6H PRN PRN Reason: pain scale 1- 10 Stop: 05/10/18 15:18 Last Admin: 05/06/18 06:50 Dose: 10 mg Nicotine (Habitrol 21 Mg Patch.24 Hr) 1 patch T-DERMAL DAILY [facility] Last Admin: 05/05/18 09:48 Dose: 1 patch Patch Removal (Remove Old Patch) 1 each T-DERMAL HS [facility] Last Admin: 05/05/18 21:57 Dose: Not Given Quetiapine Fumarate (Seroquel) 50 mg PO HS [facility] Last Admin: 05/05/18 21:41 Dose: 50 mg Allergies Allergy/AdvReac Type Severity Reaction Status Date / Time Sulfa (Sulfonamide Allergy Unknown A CHILD Verified 05/03/18 17:28 Antibiotics) Home Medications Medication Instructions Recorded Confirmed Type atenolol 50 mg PO DAILY 05/03/18 05/03/18 History Exam Vital signs: Vital Signs 05/05/18 16:45 05/05/18 17:07 05/05/18 18:04 Temperature 98.8 F Pulse Rate 78 73 78 Respiratory Rate 18 Blood Pressure 185/92 H 176/110 H Pulse Oximetry 100 05/05/18 22:29 05/05/18 23:06 05/06/18 00:08 Temperature Pulse Rate 80 62 Respiratory Rate 16 Blood Pressure 167/115 H 131/81 Pulse Oximetry 05/06/18 05:57 Temperature 97.8 F Pulse Rate 69 Respiratory Rate 18 Blood Pressure 126/85 Pulse Oximetry 100 Results - Labs Result diagrams: 05/03/18 15:23 05/05/18 08:26 Abnormal lab results 05/05/18 Range/Units 08:26 BUN 20 H (7-18) mg/dL Estimated GFR 77 L (>89) mL/min Triglycerides 274 H (42-150) mg/dL BMP 05/05/18 08:26 Sodium 139 Potassium 4.1 Chloride 103 Carbon Dioxide 28.2 BUN 20 H Creatinine 1.08 Calcium 8.5 Caprini VTE Risk Assessment Caprini VTE Risk Assessment: No/Low Risk (score <= 1) Caprini Risk Assessment Model: Point Value = 1 Point Value = 2 Point Value = 3 Point Value = 5 Age 41-60 Minor surgery BMI > 25 kg/m2 Swollen legs Varicose veins or History of unexplained or recurrent spontaneous Oral contraceptives or hormone replacement Sepsis (< 1 month) Serious lung disease, including pneumonia (< 1 month) Abnormal pulmonary function Acute myocardial infarction Congestive heart failure (< 1 month) History of inflammatory bowel disease Medical patient at bed rest Age 61-74 Arthroscopic surgery Major open surgery (> 45 min) Laparoscopic surgery (> 45 min) Malignancy Confined to bed (> 72 hours) Immobilizing plaster cast Central venous access Age >= 75 History of VTE Family history of VTE Factor V Leiden Prothrombin [id number] Lupus anticoagulant Anticardiolipin antibodies Elevated serum homocysteine Heparin-induced thrombocytopenia Other congenital or acquired thrombophilia Stroke (< 1 month) Elective arthroplasty Hip, pelvis, or leg fracture Acute spinal cord injury (< 1 month) Prophylaxis Regimen: Total Risk Factor Score Risk Level Prophylaxis Regimen 0-1 Low Early ambulation 2 Moderate Order ONE of the following: *Sequential Compression Device (SCD) *Heparin 5000 units SQ BID 3-4 Higher Order ONE of the following medications: *Heparin 5000 units SQ TID *Enoxaparin/Lovenox 40 mg SQ daily (WT < 150 kg, CrCl > 30 mL/min) *Enoxaparin/Lovenox 30 mg SQ daily (WT < 150 kg, CrCl > 10-29 mL/min) *Enoxaparin/Lovenox 30 mg SQ BID (WT < 150 kg, CrCl > 30 mL/min) AND/OR *Sequential Compression Device (SCD) 5 or more Highest Order ONE of the following medications: *Heparin 5000 units SQ TID (Preferred with Epidurals) *Enoxaparin/Lovenox 40 mg SQ daily (WT < 150 kg, CrCl > 30 mL/min) *Enoxaparin/Lovenox 30 mg SQ daily (WT < 150 kg, CrCl > 10-29 mL/min) *Enoxaparin/Lovenox 30 mg SQ BID (WT < 150 kg, CrCl > 30 mL/min) AND *Sequential Compression Device (SCD) Assessment and Plan - Assessment (1) Hypertension Code(s): I10 - Essential (primary) hypertension Status: Acute Plan: Patient currently on atenolol 50 mg daily. Will continue home medication. Continue to monitor vital signs every 4. Spoke to poison control about kratom use: Chronic kratom use can cause hypertension, constipation and cardiac abnormalities. Patient's on chronic kratom can also go through extensive withdrawal symptoms which include myalgia, insomnia, chest discomfort. Treatment of cranium withdrawal include symptomatic and supportive care. EKG: Normal sinus rhythm with left ventricular hypertrophy per resident read.\ Clonidine 0.1 mg for breakthrough to assist with withdrawal symptoms and hypertension. (2) Migraines Code(s): G43.909 - Migraine, unspecified, not intractable, without status migrainosus Status: Acute Plan: Ketotolac 10 mg q6. (3) Chronic pain Code(s): G89.29 - Other chronic pain Status: Acute Plan: Ketorolac 10 mg q 6 (4) Anxiety Code(s): F41.9 - Anxiety disorder, unspecified Status: Acute Plan: Continue Seroquel, gabapentin and Atarax (5) Nutrition, metabolism, and development symptoms Code(s): R63.8 - Other symptoms and signs concerning food and fluid intake Status: Acute Plan: Fluids: Encourage p.o. intake Electrolytes: Monitor and replete as needed. Nutrition: Regular diet. H&P: Quality - VTE Deep Vein Thrombosis/Pulmonary Embolism Present on Admission: No
[2018-05-06] MEDS: Gabapentin 300 MG Capsule PO SCH ×3 (09:13→17:12)
[2018-05-06] MEDS ORDERED: Naloxone Inj 0.4 MG/ML Vial IV.PUSH PRN (09:20)
[2018-05-06] MEDS ORDERED: Ibuprofen 400 MG Tablet PO PRN (09:20)
--- NOTE | 2018-05-06 09:35 | P.CONFP ---
History of Present Illness Service: FM <Luz Lan 05/06/18 09:41> Reason for Consult: HTN, migraine, [facility] pt <BrannonLuz Cha 05/06/18 09:41 > Primary Care Provider: Sarath Plummer MD <Dontae Chen 05/06/18 15:07> Sarath Plummer MD <BrannonLuz Cha 05/06/18 09:41> History of Present Illness: Patient doing well this morning. No acute events overnight. Patient states he continues to have 8 out of 10 chronic headaches that are constant. None of his medications he is taking of helped. He took Excedrin Migraine at home and that never helped. He has had some visual hallucinations, he cannot the last time but it was sometime last week. He continues to hear voices, however he states they are positive. Denies any feelings of suicidal ideation or intent. Denies any homicidal feelings. Patient thinks he continues to need medication to calm his anxiety and he needs a few more days until he feels like he can be safe at home. <Luz Lan 05/06/18 09:41> Review of Systems All other systems reviewed negative except as stated in HPI <Luz Lan 05/06/18 09:41> PMFSH - History History Provided By: Patient <Luz Lan 05/06/18 09:35> - Medical History Medical History: Medical History (Last Reviewed 05/04/18 @ 10:33 by ELÍAS Chung) ADHD Anxiety Hypertension Pulmonary embolism <Dontae Chen 05/06/18 15:07> Medical History (Last Reviewed 05/04/18 @ 10:33 by ELÍAS Chung) ADHD Anxiety Hypertension Pulmonary embolism <Luz Lan 05/06/18 09:35> - Tobacco History Second Hand Smoke Exposure: Yes <Luz Lan 05/06/18 09:35> Tobacco Use In Past 30 Days: Yes <Luz Lan 05/06/18 09:35> Smoking Status: Current every day smoker <Luz Lan 05/06/18 09:35> Tobacco Type: Cigarettes <Luz Lan 05/06/18 09:35> - Alcohol History How Often Do You Have a Drink Containing Alcohol: 2 to 4 times a month < [facility] 05/06/18 09:35> - Substance Use History Substance History: Past History <[facility] Angel[facility] 05/06/18 09:35> - Substance Use Type Marijuana Status: Active <[facility] AngelLuz 05/06/18 09:35> Route Used: Inhalation <[facility] AngelLuz 05/06/18 09:35> Last Used: 1 week ago [facility] Angel[facility] 05/06/18 09:35> Reason for Use: Calm Down <[facility] AngelL[facility] 05/06/18 09:35> Comment: Pain managment <[facility] AngelLuz 05/06/18 09:35> Other Status: Active <[facility] AngelLuz 05/06/18 09:35> Route Used: By Mouth <[facility] AngelL[facility] 05/06/18 09:35> Reason for Use: Calm Down <[facility] 05/06/18 09:35> Comment: Patient had used ETOH few days ago, drinks occasionally. Luda has history of opiod dependence. Patient reported he had used mushrooms a few months ago. <[facility] Angel[facility] 05/06/18 09:35> - Travel History Recent Travel in the [facility] Within the Last 8 Weeks: No <[facility] AngelLuz 09:35> Recent Travel Out of the Country Within the Last 8 Weeks: No <[facility] Angel Benton 05/06/18 09:35> - Immunization History Tetanus Immunization: <5 Years <[facility] 05/06/18 09:35> Tetanus Immunization Year if Known: 2010 <[facility] 05/06/18 09:35> Hx Influenza Vaccine This Season: No <[facility] AngelLuz 05/06/18 09:35> Medications and Allergies Allergies Allergy/AdvReac Type Severity Reaction Status Date / Time Sulfa (Sulfonamide Allergy Unknown A CHILD Verified 05/03/18 17:28 Antibiotics) <Dontae Chen Agatha - 05/06/18 15:07> Home Medications Medication Instructions Recorded Confirmed Type atenolol 50 mg PO DAILY 05/03/18 05/03/18 History <GustavoDontae Snider - 05/06/18 15:07> Active Medications: Active Medications Al Hydrox/Mg Hydrox/Simethicone (Mag-Al Plus Susp Liq) 30 ml PO Q6H PRN PRN Reason: DYSPEPSIA Al Hydroxide/Mg Hydroxide (Milk Of Magnesia Liq) 30 ml PO Q12H PRN PRN Reason: Mild Constipation Atenolol (Tenormin) 50 mg PO DAILY [facility] Last Admin: 05/06/18 12:35 Dose: 50 mg Buspirone HCl (Buspar) 10 mg PO TID [facility] Last Admin: 05/06/18 12:35 Dose: Not Given Diphenhydramine HCl (Benadryl) 50 mg PO HS PRN PRN Reason: INSOMNIA Last Admin: 05/06/18 12:37 Dose: 50 mg Gabapentin (Neurontin) 300 mg PO TID [facility] Last Admin: 05/06/18 12:35 Dose: 300 mg Hydrochlorothiazide (Hydrodiuril) 25 mg PO DAILY [facility] Last Admin: 05/06/18 11:00 Dose: 25 mg Hydroxyzine HCl (Atarax) 50 mg PO Q6H PRN PRN Reason: ANXIETY Last Admin: 05/06/18 12:35 Dose: 50 mg Ibuprofen (Motrin) 400 mg PO Q6H PRN PRN Reason: PAIN SCALE 1 TO 2 Naloxone HCl (Narcan Inj) 0.4 mg IV.PUSH UNSCH PRN PRN Reason: SEE LABEL COMMENTS Nicotine (Habitrol 21 Mg Patch.24 Hr) 1 patch T-DERMAL DAILY [facility] Last Admin: 05/06/18 09:13 Dose: 1 patch Patch Removal (Remove Old Patch) 1 each T-DERMAL HS [facility] Last Admin: 05/05/18 21:57 Dose: Not Given Quetiapine Fumarate (Seroquel) 50 mg PO HS [facility] Last Admin: 05/05/18 21:41 Dose: 50 mg Sumatriptan Succinate (Imitrex Inj) 6 mg SQ ONCE PRN PRN Reason: MIGRAINE HEADACHE Tramadol HCl (Ultram) 50 mg PO Q6H PRN PRN Reason: PAIN SCALE 3 TO 5 Tramadol HCl (Ultram) 100 mg PO Q6H PRN PRN Reason: PAIN SCALE 6 TO 10 Trazodone HCl (Desyrel) 50 mg PO HS PRN PRN Reason: SLEEP <Dontae Chen Agatha - 05/06/18 15:07> Active Medications Al Hydrox/Mg Hydrox/Simethicone (Mag-Al Plus Susp Liq) 30 ml PO Q6H PRN PRN Reason: DYSPEPSIA Al Hydroxide/Mg Hydroxide (Milk Of Magnesia Liq) 30 ml PO Q12H PRN PRN Reason: Mild Constipation Atenolol (Tenormin) 50 mg PO DAILY [facility] Diphenhydramine HCl (Benadryl) 50 mg PO HS PRN PRN Reason: INSOMNIA Last Admin: 05/05/18 21:42 Dose: 50 mg Gabapentin (Neurontin) 300 mg PO TID [facility] Last Admin: 05/06/18 09:13 Dose: 300 mg Hydrochlorothiazide (Hydrodiuril) 25 mg PO DAILY [facility] Hydroxyzine HCl (Atarax) 50 mg PO Q6H PRN PRN Reason: ANXIETY Last Admin: 05/06/18 06:48 Dose: 50 mg Ibuprofen (Motrin) 400 mg PO Q6HR PRN PRN Reason: PAIN SCALE 1 TO 2 Naloxone HCl (Narcan Inj) 0.4 mg IV.PUSH UNSCH PRN PRN Reason: SEE LABEL COMMENTS Nicotine (Habitrol 21 Mg Patch.24 Hr) 1 patch T-DERMAL DAILY [facility] Last Admin: 05/06/18 09:13 Dose: 1 patch Patch Removal (Remove Old Patch) 1 each T-DERMAL HS [facility] Last Admin: 05/05/18 21:57 Dose: Not Given Quetiapine Fumarate (Seroquel) 50 mg PO HS [facility] Last Admin: 05/05/18 21:41 Dose: 50 mg Tramadol HCl (Ultram) 50 mg PO Q6H PRN PRN Reason: PAIN SCALE 3 TO 5 Tramadol HCl (Ultram) 100 mg PO Q6H PRN PRN Reason: PAIN SCALE 6 TO 10 <Luz Lan - 05/06/18 09:35> Exam Vital signs: Vital Signs 05/05/18 16:45 05/05/18 17:07 05/05/18 18:04 Temperature 98.8 F Pulse Rate 78 73 78 Respiratory Rate 18 Blood Pressure 185/92 H 176/110 H Pulse Oximetry 100 05/05/18 22:29 05/05/18 23:06 05/06/18 00:08 Temperature Pulse Rate 80 62 Respiratory Rate 16 Blood Pressure 167/115 H 131/81 Pulse Oximetry 05/06/18 05:57 Temperature 97.8 F Pulse Rate 69 Respiratory Rate 18 Blood Pressure 126/85 Pulse Oximetry 100 <Dontae Chen 05/06/18 15:07> Vital Signs 05/05/18 16:45 05/05/18 17:07 05/05/18 18:04 Temperature 98.8 F Pulse Rate 78 73 78 Respiratory Rate 18 Blood Pressure 185/92 H 176/110 H Pulse Oximetry 100 05/05/18 22:29 05/05/18 23:06 05/06/18 00:08 Temperature Pulse Rate 80 62 Respiratory Rate 16 Blood Pressure 167/115 H 131/81 Pulse Oximetry 05/06/18 05:57 Temperature 97.8 F Pulse Rate 69 Respiratory Rate 18 Blood Pressure 126/85 Pulse Oximetry 100 <Luz Lan - 05/06/18 09:35> Narrative: GENERAL: Well-nourished, well-developed patient. No acute distress. SKIN: Warm and dry. No rash. EYES: No scleral icterus. No injection or drainage. PERRLA. EOMI. HENT: Normocephalic. Atraumatic. MMM. NECK: No visible JVD or lymphadenopathy. CARDIOVASCULAR: Warm and well perfused. Regular rate and rhythm, normal S1 and S2. No carotid bruits RESPIRATORY: Normal respiratory effort. GASTROINTESTINAL: Abdomen nondistended. MUSCULOSKELETAL: Strength grossly WNL. BACK: Without obvious deformity. NEURO/PSYCH: Afocal. Awake, alert, and oriented x3. <Luz Lan - 05/06/18 09:41> Results - Labs Result diagrams: 05/03/18 15:23 05/05/18 08:26 <Dontae Chen 05/06/18 15:07> Abnormal lab results 05/05/18 Range/Units 08:26 BUN 20 H (7-18) mg/dL Estimated GFR 77 L (>89) mL/min Triglycerides 274 H (42-150) mg/dL BMP 05/05/18 08:26 Sodium 139 Potassium 4.1 Chloride 103 Carbon Dioxide 28.2 BUN 20 H Creatinine 1.08 Calcium 8.5 <Aldo Luz Ortiz - 05/06/18 09:41> Assessment and Plan - Assessment (1) Hypertension Code(s): I10 - Essential (primary) hypertension Status: Acute (2) Migraines Code(s): G43.909 - Migraine, unspecified, not intractable, without status migrainosus Status: Acute (3) Chronic pain Code(s): G89.29 - Other chronic pain Status: Acute (4) Anxiety Code(s): F41.9 - Anxiety disorder, unspecified Status: Acute (5) Nutrition, metabolism, and development symptoms Code(s): R63.8 - Other symptoms and signs concerning food and fluid intake Status: Acute <GustavoDontae - 05/06/18 15:07> (1) Hypertension Code(s): I10 - Essential (primary) hypertension Status: Acute Plan: Patient at home: on atenolol 50 mg daily.. Spoke to poison control about kratom use: Chronic kratom use can cause hypertension, constipation and cardiac abnormalities. Patient's on chronic kratom can also go through extensive withdrawal symptoms which include myalgia, insomnia, chest discomfort. Treatment of cranium withdrawal include symptomatic and supportive care. EKG: Normal sinus rhythm with left ventricular hypertrophy per resident read. Clonidine 0.1 mg for breakthrough to assist with withdrawal symptoms and hypertension. Elevated BPs on admission: 211/121, 190/107 with headache, elevated creatinine s/p atenolol 50 mg x2 doses, thiazide 25 mg p.o. x1 BPs improved this morning Continue atenolol 50 mg daily, add thiazide 25 mg daily Today to follow-up BP (2) Migraines Code(s): G43.909 - Migraine, unspecified, not intractable, without status migrainosus Status: Acute Plan: Pain scale added to include ibuprofen, tramadol No improvement of symptoms with Toradol If blood pressures are well regulated over the next few days we may could be able to consider triptan (3) Chronic pain Code(s): G89.29 - Other chronic pain Status: Acute Plan: See above, myalgia may be side effect of drug use or dehydration on admission (4) Anxiety Code(s): F41.9 - Anxiety disorder, unspecified Status: Acute Plan: Continue Seroquel, gabapentin and Atarax Psych to manage (5) Nutrition, metabolism, and development symptoms Code(s): R63.8 - Other symptoms and signs concerning food and fluid intake Status: Acute Plan: Fluids: Encourage p.o. intake Electrolytes: Monitor and replete as needed. Nutrition: Regular diet. <Luz Lan - 05/06/18 09:36> - Attending Attestation The exam, history, and the medical decision-making described in the above note were completed with the assistance of the resident physician. I reviewed and agree with the findings presented. I attest that I had a [id number] encounter with the patient on the same day, and personally performed and documented my assessment and findings in the medical record. D/W Dr Stokes and Dr Plummer (PCP). 1. Anxiety per psychiatry, will help as needed now on seroquel, atarax, adding buspar today. 2. HTN this is long standing beta bryan good choice with his anxiety and chronic headaches. HCTZ added to atenolol this AM and good control when I saw him late AM. From here would increase BB or change to more potent BB. 3. Chronic headaches continue BB for ppx. was getting NSAIDs and can continue these tramadol added prn this AM Also added triptans as needed PRN 4. ELGIN resolved, use toradol sparingly Thank you for this consultation <Dontae Chen - 05/06/18 15:07>
--- NOTE | 2018-05-06 09:42 | P.PNPSY ---
Subjective Chief Complaint: "I have been experiencing crippling anxiety, all over body pain , seeing things, and hearing voices in my head." Remarks: Reviewed electronic medical record and discussed with nursing staff. Rounded with PRICE Evangelista. Patient in his room. States his anxiety is extremely high and he is not sleeping. He just started Gabapentin, but pain in his right hand and left knee are still a concern. He is followed by the Hospitalist and they are addressing his pain. Will start on Buspar and added Trazodone 50 mg qhs prn if he continues to have difficultly sleeping he can ask for a sleeping aid. Denies any visual or auditory hallucinations. Review of Systems All other systems reviewed negative except as stated in HPI Mental Status Examination Appearance: Appropriate, Well dressed/well groomed Consciousness: Alert Orientation: x4 Motor Activity: Normal gait Speech: Unremarkable Language: Perseveration (On astral planes and other dimensions) Fund of Knowledge: Adequate Attention and Concentration: Easily distracted Memory: Unremarkable Mood: Anxious Affect: Anxious Thought Process & Associations: Tangential Thought Content: Appropriate, Preoccupations (with his pain and anxiety ) Hallucination Type: None Delusion Type: None Suicidal Ideation: No Suicidal Plan: No Suicidal Intention: No Homicidal Ideation: No Homicidal Plan: No Homicidal Intention: No Insight: Fair Judgment: Impulsive Assessment and Plan - Assessment (1) Unspecified psychosis Code(s): F29 - Unspecified psychosis not due to a substance or known physiological condition Status: Acute (2) Anxiety Code(s): F41.9 - Anxiety disorder, unspecified Status: Acute - Plan Plan: Started Buspar 10 mg tid, added Trazodone 50 mg qhs prn for sleep. Justification for Continued Inpatient Stay: Moving patient to a less restrictive environment may result in his decompensation. Request Healthcare Surrogate/Guardian Advocate?: No
[2018-05-06] MEDS: hydroCHLOROthiazide 25 MG Tablet PO SCH (11:00)
--- NOTE | 2018-05-06 11:27 | ECG ---
Date Performed: 05/05/2018 Time Performed: 11:09:39 PTAGE: 38 years EKG: Sinus rhythm NORMAL ECG Since the PREVIOUS TRACING , no significant change noted PREVIOUS TRACIN02/07/2018 17.12 DOCTOR: Navi Montejo Interpretating Date/Time 05/06/2018 11:26:23
[2018-05-06] MEDS: Atenolol 50 MG Tablet PO SCH (12:35)
[2018-05-06] MEDS ORDERED: Atenolol 50 MG Tablet PO SCH (13:15)
[2018-05-06] MEDS: traZODone 50 MG Tablet PO PRN (21:10)
[2018-05-06] MEDS: QUEtiapine 25 MG Tablet PO SCH (21:10)
[2018-05-07] MEDS: Gabapentin 300 MG Capsule PO SCH ×3 (08:25→17:24)
[2018-05-07] MEDS: Atenolol 50 MG Tablet PO SCH (08:26)
[2018-05-07] MEDS: hydroCHLOROthiazide 25 MG Tablet PO SCH (08:26)
--- NOTE | 2018-05-07 12:26 | P.PNPSY ---
Subjective Chief Complaint: "I have been experiencing crippling anxiety, all over body pain , seeing things, and hearing voices in my head." Remarks: May 07, 2018 Subjective: Patient feels that the Atarax she is receiving is currently helping him with his anxiety. The Imitrex has helped with his headache patient is comfortable with going home if his current regimen continues to improve his anxiety. We will consider discharge tomorrow with recommendations for follow- up with his primary care physician. Patient has been started on medication to help prevent the migraines. Review of Systems May 07, 2018 ROS: Patient has no new complaints in the ROS. He remains anxious and has had headaches in the past 24 hours. Mental Status Examination Appearance: Appropriate, Well dressed/well groomed Consciousness: Alert Orientation: x4 Motor Activity: Normal gait Speech: Unremarkable Language: Perseveration (On astral planes and other dimensions) Fund of Knowledge: Adequate Attention and Concentration: Easily distracted Memory: Unremarkable Mood: Anxious Affect: Anxious Thought Process & Associations: Tangential Thought Content: Appropriate, Preoccupations (with his pain and anxiety ) Hallucination Type: None Delusion Type: None Suicidal Ideation: No Suicidal Plan: No Suicidal Intention: No Homicidal Ideation: No Homicidal Plan: No Homicidal Intention: No Insight: Fair Judgment: Impulsive Assessment and Plan - Plan Plan: Started Buspar 10 mg tid, added Trazodone 50 mg qhs prn for sleep. May 07, 2018 Patient is improving the BuSpar has not had time to be of much benefit. He feels he is doing well at this time with the Atarax. Justification for Continued Inpatient Stay: May 07, 2018 Patient is at risk for decompensation if discharged at this time. Request Healthcare Surrogate/Guardian Advocate?: No
--- NOTE | 2018-05-07 15:00 | P.PNFP ---
Subjective Interval history: Patient seen and examined today with Dr. Fregoso. Patient is doing well with no acute events overnight. He states that his headaches have gone away after he got a sumatriptan shot last night. He is wondering how long the shot will last. He has a vague-like headache feeling but does not have any severe migraines. No vision changes or hallucinations. He is continue to work with psychiatry. <Luz Lan - 05/07/18 14:59> Results - Labs Result diagrams: 05/03/18 15:23 05/05/18 08:26 <Kinsey Fregoso - 05/09/18 11:09> Physical Exam Vital signs: Intake & Output 05/08/18 05/09/18 05/09/18 18:59 06:59 18:59 Intake Total 480 / 480 Balance 480 / 480 Intake: Oral 480 / 480 <Kinsey Fregoso - 05/09/18 11:09> Vital Signs 05/06/18 17:39 05/06/18 19:45 05/07/18 00:33 Temperature 98.7 F Pulse Rate 72 Respiratory Rate 18 16 16 Blood Pressure 165/99 H Pulse Oximetry 99 05/07/18 05:40 Temperature 98.1 F Pulse Rate 58 L Respiratory Rate 16 Blood Pressure 118/68 Pulse Oximetry 100 Intake & Output 05/06/18 05/07/18 05/07/18 18:59 06:59 18:59 Intake Total 920 / 920 Balance 920 / 920 Weight 81.8 kg Intake: Oral 920 / 920 <Luz Lan - 05/07/18 14:59> Narrative: GENERAL: Well-nourished, well-developed patient. No acute distress. SKIN: Warm and dry. No rash. EYES: No scleral icterus. No injection or drainage. PERRLA. EOMI. HENT: Normocephalic. Atraumatic. MMM. NECK: No visible JVD or lymphadenopathy. CARDIOVASCULAR: Warm and well perfused. Regular rate and rhythm, normal S1 and S2. No carotid bruits RESPIRATORY: Normal respiratory effort. GASTROINTESTINAL: Abdomen nondistended. MUSCULOSKELETAL: Strength grossly WNL. BACK: Without obvious deformity. NEURO/PSYCH: Afocal. Awake, alert, and oriented x3. <Luz Lan - 05/07/18 14:59> Assessment and Plan - Assessment (1) Hypertension Code(s): I10 - Essential (primary) hypertension Status: Acute (2) Migraines Code(s): G43.909 - Migraine, unspecified, not intractable, without status migrainosus Status: Acute (3) Chronic pain Code(s): G89.29 - Other chronic pain Status: Acute (4) Anxiety Code(s): F41.9 - Anxiety disorder, unspecified Status: Acute (5) Nutrition, metabolism, and development symptoms Code(s): R63.8 - Other symptoms and signs concerning food and fluid intake Status: Acute <Kinsey Fregoso Richard - 05/09/18 11:09> (1) Hypertension Code(s): I10 - Essential (primary) hypertension Status: Acute Plan: Patient at home: on atenolol 50 mg daily.. Spoke to poison control about kratom use: Chronic kratom use can cause hypertension, constipation and cardiac abnormalities. Patient's on chronic kratom can also go through extensive withdrawal symptoms which include myalgia, insomnia, chest discomfort. Treatment of cranium withdrawal include symptomatic and supportive care. EKG: Normal sinus rhythm with left ventricular hypertrophy per resident read. Clonidine 0.1 mg for breakthrough to assist with withdrawal symptoms and hypertension. Elevated BPs on admission: 211/121, 190/107 with headache, elevated creatinine s/p atenolol 50 mg x2 doses, thiazide 25 mg p.o. x1 BPs improved this morning Continue atenolol 50 mg daily and thiazide 25 mg daily Continue to manage pain (2) Migraines Code(s): G43.909 - Migraine, unspecified, not intractable, without status migrainosus Status: Acute Plan: Pain scale added to include ibuprofen, tramadol No improvement of symptoms with Toradol Improvement of symptoms with sumatriptan and injection subcu, continue to provide as needed well patient is in hospital as long as BPs remained stable (3) Chronic pain Code(s): G89.29 - Other chronic pain Status: Acute Plan: See above, myalgia may be side effect of drug use or dehydration on admission (4) Anxiety Code(s): F41.9 - Anxiety disorder, unspecified Status: Acute Plan: Continue Seroquel, gabapentin and Atarax Psych to manage (5) Nutrition, metabolism, and development symptoms Code(s): R63.8 - Other symptoms and signs concerning food and fluid intake Status: Acute Plan: Fluids: Encourage p.o. intake Electrolytes: Monitor and replete as needed. Nutrition: Regular diet. <Luz Lan - 05/07/18 14:55> - Attending Attestation The exam, history, and the medical decision-making described in the above note were completed with the assistance of the resident physician. I reviewed and agree with the findings presented. I attest that I had a [id number] encounter with the patient on the same day, and personally performed and documented my assessment and findings in the medical record. agree with changing his beta bryan to one used for migraine prophylaxis. metoprolol has an indication for that more than atenolol <Kinsey Fregoso - 05/09/18 11:09>
[2018-05-07] MEDS: QUEtiapine 25 MG Tablet PO SCH (20:07)
[2018-05-07] MEDS: traZODone 50 MG Tablet PO PRN (20:08)
[2018-05-08 06:08] VITALS: BP 110/68; PULSE 60; TEMP 97.8; O2SAT 100
[2018-05-08 06:09] VITALS: RESP 16
[2018-05-08] MEDS: Gabapentin 300 MG Capsule PO SCH ×2 (08:07→12:04)
[2018-05-08] MEDS: hydroCHLOROthiazide 25 MG Tablet PO SCH (08:07)
--- NOTE | 2018-05-08 11:11 | P.DSPSY ---
Psychiatry Discharge Summary Inpatient Psychiatric care?: Yes Advance Directives: No Mental Health Advance Directive: No Health Care Proxy: No - Admission Admission Date: May 04, 2018 10:14 Brief History: This is a 38-year-old single, male who presents to this facility voluntarily reporting bizarre beliefs as well as visual and auditory hallucinations. He is previously known to this facility although not this department. Reviewed electronic medical record, labs, and discussed case with staff. Patient's toxicology is noted to be positive for cannabinoids. Patient was found in J103 sleeping under no apparent distress. He awakens to verbal stimulation. His speech is clear, logical, organized, rapid and pressured. He endorses suicidal ideation in a vague manner stating "I think about it all the time" but denies any previous attempts. But then goes on a tangent about "what comes next". He then states, "I know it is after this I seen it". He denies homicidal ideation. He endorses auditory hallucinations stating that the voices in his head keep telling "me to get better". He reports that he is experiencing visual hallucinations and when asked to elaborate he states, "I see energy all around me that forms itself and shapes I can talk to". The patient also states that he has been meditating and performing astral projection and due to this he is no longer able to "focus on one dimension". Throughout the conversation he goes off on multiple tangents along this line. He is easily distractible but overall is cooperative. Patient states that he lives with his mother. He is currently unemployed for the past 6 months. 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 He denies any previous inpatient admissions. He states that he did go to a psychiatrist once and was diagnosed with ADHD however he did not take the medication for long as he felt it was counterproductive. There was approximately 2 months ago. He reports that he is completed 3 years of college. He denies any firearms in the home. He denies any familial psychiatric diagnoses. He states that he was arrested once and spent time in correction for reckless driving/DUI. He does report chronic pain to his left leg and right hand due to surgeries but states he now has chronic pain "all over". He reports that he smokes a couple cigarettes a day, drinks occasionally, and denies any other drug use then marijuana approximately every other day. He does state his have difficulty sleeping of late reporting that he is gone as long as 3 days without sleeping. He then stated he will sleep for approximately an hour and be up again. He reports that his appetite has been greatly decreased and states that he has had intermittent cyclic vomiting. He denies any connection to the marijuana. Tobacco Use In Past 30 Days: Yes How Often Do You Have a Drink Containing Alcohol: 2 to 4 times a month Hospital Course: May 08, 2018 Hospital course: Patient had a gradual response with abstinence from cannabinoids. The patient gave a rather vague history of pain visual and auditory hallucinations which he eventually associated with his migraine headaches. Patient also complained of overwhelming anxiety number of anti-anxiety medications and buspirone and Seroquel. Patient feels that the Imitrex for his headache did the most for him. He experienced improvement to in terms of his elevated blood pressure with the atenolol. Today the patient has no complaints and feels much improved. He is discharged with his current low-dose medications Seroquel attended all buspirone and Atarax. - Discharge Discharge Date: 05/08/18 - Discharge Diagnosis (1) Unspecified psychosis Code(s): F29 - Unspecified psychosis not due to a substance or known physiological condition Status: Acute Discharge Disposition: Home - Discharge Instructions Discharge Diet: Regular Diet Activities You Can Perform: Regular- No Restrictions - Discharge Time > 30 minutes Mental Status Examination Appearance: Appropriate, Well dressed/well groomed Consciousness: Alert Orientation: x4 Motor Activity: Normal gait Speech: Unremarkable Language: Perseveration (On astral planes and other dimensions) Fund of Knowledge: Adequate Attention and Concentration: Easily distracted Memory: Unremarkable Mood: Anxious Affect: Anxious Thought Process & Associations: Tangential Thought Content: Appropriate, Preoccupations (with his pain and anxiety ) Hallucination Type: None Delusion Type: None Suicidal Ideation: No Suicidal Plan: No Suicidal Intention: No Homicidal Ideation: No Homicidal Plan: No Homicidal Intention: No Insight: Fair Judgment: Impulsive Discharge/Advance Care Plan - Results Vital Signs: Last Vital Signs Temp 97.8 F 05/08/18 06:07 Pulse 60 05/08/18 06:07 Resp 16 05/08/18 06:07 BP 110/68 05/08/18 06:07 Pulse Ox 100 01/15/19 06:07 Lab Results: Laboratory Results Hemoglobin A1c 5.1 % (4.3-6.0) 05/05/18 08:26 Triglycerides 274 mg/dL (42-150) H 05/05/18 08:26 Cholesterol 191 mg/dL (120-200) 05/05/18 08:26 LDL Cholesterol, Calc 81 mg/dL (0-99) 05/05/18 08:26 HDL Cholesterol 55.5 mg/dL (40.0-60.0) 05/05/18 08:26 TSH 0.564 uIU/mL (0.358-3.740) 05/03/18 15:23 Summary of Procedures: None Pending Results: None - Medications Number of antipsychotic medications at discharge: 1 - Discharge Care Plan Goals to Promote Your Health: * To prevent worsening of your condition and complications * To maintain your health at the optimal level Directions to Meet Your Goals: Take your medications as prescribed Follow your dietary instruction Follow activity as directed Keep your appointments as scheduled Take your immunizations and boosters as scheduled If your symptoms worsen call your PCP, if no PCP go to Urgent Care Center or Emergency Room For 14/11 questions related to your inpatient stay or results of tests pending at discharge, please contact Dr. Shashank Marie MD at Smoking is Dangerous to Your Health. Avoid second hand smoking
== END 2018-05-08 12:15 | disposition home or self-care (01) | DRG 885 ==
LOC: NEPD 14:35 → NEDA 05-04 10:14 → H260 05-04 14:29
PROVIDERS: ADMIT Psychiatry & Neurology Child & Adolescent Psychiatry; ATTEND Psychiatry & Neurology Child & Adolescent Psychiatry
CPT/HCPCS: 80048; 80053; 80061; 80307; 83036; 83735; 84443; 85025; 93005; 99285; J3030; Q0163